=== PATIENT | female | born 1995 | race Caucasian/White ===

== ENCOUNTER 2016-09-16 20:12 | Emergency (ER) | payer MEDICAID ==
[2016-09-16 20:19] VITALS: BP 125/78
[2016-09-16] MEDS ORDERED: ONDANSETRON 4 MG TAB.RAPDIS PO ONE (20:24)
[2016-09-16] MEDS ORDERED: METOCLOPRAMIDE HCL 10 MG TABLET PO ONE (20:32)
--- NOTE | 2016-09-16 20:34 | ER Document Report ---
ED Medical Screen (RME) - General Chief Complaint: Abdominal Pain Stated Complaint: THROWING UP BLOOD Time Seen by Provider: 09/16/16 20:24 TRAVEL OUTSIDE OF THE [place] IN LAST 30 DAYS: No - HPI Notes: 09/16/16 20:32 Patient coming in approximately 7 weeks for lower abdominal pain and vomiting possibly vomiting blood after eating carrots today. Patient states vomited once second time she vomited this also blood. - Related Data Allergies/Adverse Reactions: Cephalosporins Allergy (Verified 09/16/16 20:16) levofloxacin [From Levaquin] Allergy (Verified 09/16/16 20:16) Past Medical History Renal/ Medical History: Denies: Hx Peritoneal Dialysis Review of Systems - Review of Systems Gastrointestinal: Abdominal pain Physical Exam - Vital signs Vitals: Temp Pulse Resp BP Pulse Ox 98.3 F 99 18 125/78 100 09/16/16 20:17 09/16/16 20:17 09/16/16 20:17 09/16/16 20:17 09/16/16 20:17 - Abdominal Inspection: Normal Distension: No distension Bowel sounds: Normal Tenderness: Nontender Course - Vital Signs Vital signs: Temp Pulse Resp BP Pulse Ox 98.3 F 99 18 125/78 100 09/16/16 20:17 09/16/16 20:17 09/16/16 20:17 09/16/16 20:17 09/16/16 20:17
[2016-09-16 21:04] LABS: ABSOLUTE LYMPHOCYTES (AUTO) 1.2 10^3/uL (0.5-4.7); ABSOLUTE MONOCYTES (AUTO) 0.6 10^3/uL (0.1-1.4); ABSOLUTE NEUT (AUTO) 13.6 10^3/uL (1.7-8.2); BASOPHILS % (AUTO) 0.2 % (0-2); EOSINOPHILS % (AUTO) 0.1 % (0-6); HEMATOCRIT 41.2 % (36.0-47.0); HEMOGLOBIN 13.9 g/dL (12.0-15.5); HGB HCT DIFFERENCE 0.5; LYMPHOCYTES % (AUTO) 7.5 % (13-45); MEAN CORPUSCULAR HEMOGLOBIN 31.6 pg (27.0-33.4); MEAN CORPUSCULAR HGB CONC 33.7 g/dL (32.0-36.0); MEAN CORPUSCULAR VOLUME 94 fl (80-97); MONOCYTES % (AUTO) 3.9 % (3-13); RED CELL DISTRIBUTION WIDTH 12.4 % (11.5-14.0); SEGMENTED NEUTROPHILS % (AUTO) 88.3 % (42-78); WHITE BLOOD COUNT 15.4 10^3/uL (4.0-10.5)
[2016-09-16 21:10] LABS: APPEARANCE,URINE CLOUDY; BILIRUBIN,URINE NEGATIVE (NEGATIVE); GLUCOSE, URINE NEGATIVE (NEGATIVE); KETONES,URINE 80 mg/dL (NEGATIVE); LEUKOCYTE ESTERASE,URINE SMALL (NEGATIVE); NITRITE,URINE NEGATIVE (NEGATIVE); PROTEIN,URINE 30 mg/dL (NEGATIVE); URINE SPECIFIC GRAVITY 1.026; UROBILINOGEN,URINE NEGATIVE mg/dL (<2.0)
[2016-09-16 21:17] LABS: PROTHROMBIN TIME 13.4 SEC (11.4-15.4)
[2016-09-16 21:18] LABS: PARTIAL THROMBOPLASTIN TIME 33.8 SEC (23.5-35.8)
[2016-09-16 21:22] LABS: ALANINE AMINOTRANSFERASE 21 U/L (9-52); ALBUMIN 4.9 g/dL (3.5-5.0); ALKALINE PHOSPHATASE 71 U/L (38-126); ANION GAP 16 (5-19); ASPARTATE AMINO TRANSFERASE 17 U/L (14-36); BILIRUBIN,DIRECT 0.4 mg/dL (0.0-0.4); BILIRUBIN,TOTAL 0.8 mg/dL (0.2-1.3); BLOOD UREA NITROGEN 7 mg/dL (7-20); CARBON DIOXIDE 21 mmol/L (22-30); CHLORIDE 102 mmol/L (98-107); CREATININE RESULT 0.56 mg/dL (0.52-1.25); GLUCOSE 109 mg/dL (75-110); LIPASE 77.2 U/L (23-300); POTASSIUM 3.6 mmol/L (3.6-5.0); SODIUM 138.5 mmol/L (137-145); TOTAL PROTEIN 8.2 g/dL (6.3-8.2)
--- NOTE | 2016-09-16 21:45 | RADIOLOGY REPORT (SQ) ---
EXAM DESCRIPTION: U/S OB TRANSVAG W/DOPPLER COMPLETED DATE/TIME: 09/16/2016 9:31 pm REASON FOR STUDY: abd pain preg COMPARISON: None. TECHNIQUE: Transvaginal static and realtime grayscale images acquired of the pelvis. Additional young cted spectral and color Doppler images recorded. All images stored on PACs. bHCG: Not available. LIMITATIONS: None. FINDINGS: FETUS: Living intrauterine . EGA: 7 week 2 day. ELLA: 05/03/2017. FHR: 153 beats per minute. SUBCHORIONIC BLEED: Yes. SIZE OF BLEED: 0.5 x 0.7 x 1.1 cm. UTERUS: No masses. No anomalies. CERVIX: Closed. Cervical length not measured. RIGHT ADNEXA: Normal ovary with normal vascular flow. No adnexal free fluid. No adnexal masses. LEFT ADNEXA: Normal ovary with normal vascular flow. No adnexal free fluid. No adnexal masses. FREE FLUID: None. OTHER: No other significant finding. IMPRESSION: LIVING INTRAUTERINE . EGA 7 WEEK 2 DAY. Trimester of : First - 0 to 13 weeks. TECHNICAL DOCUMENTATION: JOB ID: [id number] [employer]- All Rights Reserved
[2016-09-16] MEDS ORDERED: NORMAL SALINE 1000 ML 1,000 ML IV ONE ×2 (22:18)
--- NOTE | 2016-09-16 22:22 | ER Document Report ---
ED GI/ - General Chief Complaint: Abdominal Pain Stated Complaint: THROWING UP BLOOD Time Seen by Provider: 09/16/16 20:24 Notes: Patient is a 21-year-old female, at 7 weeks gestation by LMP, who comes emergency department for chief complaint of vomiting, she states she has vomited all day since this morning, she states she tried to eat some carrots and then vomited those up, she from blood mixed in with the vomit (bright red) , she states she vomited again and it looks brownish, she denies black or bloody bowel movements. She did have some abdominal cramping earlier but denies current abdominal pain. She denies any current symptoms. She takes no daily medications other than PNVs. She denies any surgeries. TRAVEL OUTSIDE OF THE [place] IN LAST 30 DAYS: No - Related Data Allergies/Adverse Reactions: Cephalosporins Allergy (Verified 09/16/16 20:16) levofloxacin [From Levaquin] Allergy (Verified 09/16/16 20:16) Past Medical History - General Information source: Patient - Social History Smoking Status: Never Smoker Frequency of alcohol use: None Drug Abuse: None Lives with: Family Family History: Reviewed & Not Pertinent Patient has suicidal ideation: No Patient has homicidal ideation: No - Medical History Medical History: Negative Renal/ Medical History: Denies: Hx Peritoneal Dialysis Surgical Hx: Negative - Immunizations Immunizations up to date: Yes Hx Diphtheria, Pertussis, Tetanus Vaccination: Yes Review of Systems - Review of Systems Constitutional: No symptoms reported EENT: No symptoms reported Cardiovascular: No symptoms reported Respiratory: No symptoms reported Gastrointestinal: See HPI Genitourinary: No symptoms reported Female Genitourinary: See HPI Musculoskeletal: No symptoms reported Skin: No symptoms reported Hematologic/Lymphatic: No symptoms reported Neurological/Psychological: No symptoms reported Physical Exam - Vital signs Vitals: Temp Pulse Resp BP Pulse Ox 98.3 F 99 18 125/78 100 09/16/16 20:17 09/16/16 20:17 09/16/16 20:17 09/16/16 20:17 09/16/16 20:17 Interpretation: Normal - General General appearance: Appears well, Alert In distress: None - Patient is alert and well-appearing - HEENT Head: Normocephalic, Atraumatic Eyes: Normal Conjunctiva: Normal Extraocular movements intact: Yes Eyelashes: Normal Pupils: PERRL Nasal: Normal Mouth/Lips: Normal Mucous membranes: Normal Pharynx: Normal Neck: Normal - Respiratory Respiratory status: No respiratory distress Chest status: Nontender Breath sounds: Normal Chest palpation: Normal - Cardiovascular Rhythm: Regular. No: Tachycardia Heart sounds: Normal auscultation, S1 appreciated, S2 appreciated Murmur: No - Abdominal Inspection: Normal Distension: No distension Bowel sounds: Normal Tenderness: Nontender. No: Tender - Do not appreciate any abdominal tenderness or pelvic tenderness on my exam Organomegaly: No organomegaly - Back Back: Normal, Nontender. No: Tender, CVA tenderness - Extremities General upper extremity: Normal inspection, Nontender, Normal color, Normal ROM , Normal temperature General lower extremity: Normal inspection, Nontender, Normal color, Normal ROM , Normal temperature, Normal weight bearing. No: Ruben's sign - Neurological Neuro grossly intact: Yes Cognition: Normal Orientation: AAOx4 Horacio Coma Scale Eye Opening: Spontaneous Horacio Coma Scale Verbal: Oriented Mchenry Coma Scale Motor: Obeys Commands Mchenry Coma Scale Total: 15 Speech: Normal Motor strength normal: LUE, RUE, LLE, RLE Sensory: Normal - Psychological Associated symptoms: Normal affect, Normal mood - Skin Skin Temperature: Warm Skin Moisture: Dry Skin Color: Normal Course - Re-evaluation Re-evalutation: Patient's abdomen is actually very soft on examination. She is quite well- appearing. She tolerated by mouth medications and fluids. After medications, IV fluids patient states she has no current symptoms, she feels good. CBC shows leukocytosis, this is nonspecific with vomiting. Urinalysis shows 80 + ketones, also contaminated sample, also with elevated specific gravity consistent with dehydration. Patient is not tachycardic. Patient reported another episode of vomiting without any blood in it. Suspect esophageal tear but I have low suspicion of any significant abdominal bleed. Patient had retching and this is most likely the cause. I discussed further workup including testing stool, declined by patient. RhoGam is not indicated. See DOCK BOSS unremarkable, hCG is appropriately elevated, ultrasound showing IUP that is living, also shows small subchorionic bleed. This was discussed in detail with patient, she was provided a copy of the ultrasound, discussed [employer] follow-up, nausea/vomiting control, return precautions, patient states satisfaction and agreement. - Vital Signs Vital signs: Temp Pulse Resp BP Pulse Ox 98.3 F 82 20 125/78 99 09/16/16 20:17 09/17/16 00:53 09/17/16 00:53 09/16/16 20:17 09/17/16 00:53 - Laboratory Result Diagrams: 09/16/16 20:35 09/16/16 20:35 Laboratory results interpreted by me: 09/16/16 09/16/16 09/16/16 20:35 20:35 20:35 WBC 15.4 H Seg Neutrophils % 88.3 H Lymphocytes % 7.5 L Absolute Neutrophils 13.6 H Carbon Dioxide 21 L Beta HCG, Quant 499354.00 H Urine Protein 30 H Urine Ketones 80 H Ur Leukocyte Esterase SMALL H Urine Ascorbic Acid 40 H Discharge - Discharge Clinical Impression: Vomiting affecting , Abdominal cramping affecting , Dehydration Condition: Stable Disposition: HOME, SELF-CARE Additional Instructions: Your ultrasound shows a in the uterus, it also shows a subchorionic bleed as discussed, rest, avoid running, lifting, jumping, sexual intercourse until cleared to do so by [employer]. Take the prescribed medication for nausea/vomiting, I recommend 12.5-25 mg of Benadryl along with the medication for best results. Hydrate, start with bland foods, progress slowly. Return to emergency department for any concerning or worsening symptoms including abdominal pain, black or bloody stools, vomiting blood, fever, or any other concerning symptoms. Prescriptions: Metoclopramide HCl [Reglan] 5 mg PO ASDIR PRN #30 tablet PRN Reason:
== END 2016-09-17 00:56 | disposition home or self-care (01) ==
LOC: ER 20:12
DX: O21.9 Vomiting of pregnancy, unspecified (principal); O99.281 Endocrine, nutritional and metabolic diseases complicating pregnancy, first trimester; E86.0 Dehydration; O26.891 Other specified pregnancy related conditions, first trimester; R10.9 Unspecified abdominal pain; O99.611 Diseases of the digestive system complicating pregnancy, first trimester; K92.0 Hematemesis; O99.111 Other diseases of the blood and blood-forming organs and certain disorders involving the immune mechanism complicating pregnancy, first trimester; D72.829 Elevated white blood cell count, unspecified; O20.8 Other hemorrhage in early pregnancy; Z3A.01 Less than 8 weeks gestation of pregnancy; Z88.1 Allergy status to other antibiotic agents; Z79.899 Other long term (current) drug therapy
CPT/HCPCS: 99284; 96360; 96361; 86900; 86901; 36415; 84702; 83690; 85025; 85610; 85730; 80053; 81001; 76817; 93976; J7030